=== PATIENT | male | born 1970 | race Caucasian/White ===

== ENCOUNTER 2018-12-07 07:30 | Day surgery (SDC) | payer BC ==
[~2018-12-07] VITALS: Ht 188 cm; Wt 97.4 kg
[~2018-12-07 07:30] MED LIST: NO HOME MEDICATIONS; PRINIVIL5 MG PO
[2018-12-07] MEDS ORDERED: ZESTRIL 20MG TA20 MG PO (07:57)
[2018-12-07 07:59] VITALS: BP 135/90; PULSE 68; TEMP 98.9
[2018-12-07] MEDS ORDERED: HYGROTON 2525 MG/TAB PO (07:59)
[2018-12-07 09:30] VITALS: BP 112/88; PULSE 88; TEMP 98.3
--- NOTE | 2018-12-07 09:30 | NUR ---
Patient arrives back to [facility] alert, denies pain or nausea. Patient monitor applied, vitals stable. Spouse at bedside. Patient given coffee and muffin.
[2018-12-07 09:45] VITALS: BP 112/86; PULSE 74
--- NOTE | 2018-12-07 09:55 | NUR ---
Patient tolerates coffee and muffin without any nausea. Denies pain. IV discontinued and patient getting dressed.
--- NOTE | 2018-12-07 10:20 | NUR ---
Dr Jackson into see patient at this time.
--- NOTE | 2018-12-07 10:30 | NUR ---
Dismissal instructions gone over with patient and patient's spouse. Both verbalize understanding and all questions answered.
--- NOTE | 2018-12-07 10:35 | NUR ---
Patient leaves thanking staff for services.
== END 2018-12-07 10:35 | disposition home or self-care (01) ==
LOC: SDCO 07:30
DX: Z12.11 Encounter for screening for malignant neoplasm of colon (principal); D12.2 Benign neoplasm of ascending colon; D12.3 Benign neoplasm of transverse colon; K63.5 Polyp of colon; K57.30 Diverticulosis of large intestine without perforation or abscess without bleeding; K64.0 First degree hemorrhoids; I10 Essential (primary) hypertension; Z79.899 Other long term (current) drug therapy
CPT/HCPCS: J2250; J2405; J3010; J7030